=== PATIENT | male | born 2000 | race Caucasian/White ===

== ENCOUNTER 2022-09-07 14:48 | Emergency (ER) | payer BC, SELFPAY ==
[2022-09-07 14:49] VITALS: BP 146/103; PULSE 120; RESP 18; TEMP 36.6; O2SAT 99; BMI 17.0
--- NOTE | 2022-09-07 15:23 | ED.VIS.GI ---
HPI HPI - GI History of Present Illness Chief Complaint: Abd Pain Narrative Narrative: 22-year-old male presenting with nausea since Tuesday. This is now 3 days of symptoms. 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 He states that he did not drink much water. Patient states that when he came home he mowed the entire lawn. He thinks he may be dehydrated. He states he is able to get some fluids into him but if he tries to eat anything he immediately has to spit it out he cannot swallow. He denies any vomiting. Patient states that when he initially had the symptoms he was very shaky and sweating. He states he does have a history of anxiety but is unsure if he was having anxiety at that moment. He states that his family member fell to his head and states that he was hot. He did not check his temperature. He has not had a return of the symptoms. Patient states that he is still making urine and denies any dysuria or hematuria. He is a little bit constipated and took a stool softener. Patient also admits to every day marijuana use. He states he is using since he was 15. He states that since he had the symptoms he feels like taking a hot shower with the water directed between his shoulder blades makes him feel better. He states he has been laying on the couch frequently. Patient does report some vague epigastric pain currently but states it was worse on Tuesday. He reports that he ate pizza Tuesday morning and had some potato soup Tuesday evening. Patient has not had any abdominal surgeries in the past. PFSH PFSH Medical History no medical history Home Medications famotidine 20 mg tablet (Pepcid AC) 20 mg PO BID PRN dyspepsia #20 tabs 09/07/22 [Rx Last Taken Unknown] ondansetron 4 mg disintegrating tablet 4 mg PO Q8H PRN PRN Nausea #14 tabs 09/07/22 [Rx Last Taken Unknown] Allergy/AdvReac Type Severity Reaction Status Date / Time No Known Allergies Allergy Verified 09/07/22 14:50 Family History Other Cancer Surgical History no surgical history Social History Smoking Status: Never smoker alcohol intake: never substance use type: does not use ROS ROS ED Constitutional Constitutional ED: Reports subjective and sweats ENT ENT ED: Denies rhinorrhea or sore throat Cardiovascular Cardiovascular: Reports racing heartbeat; Denies chest pain Respiratory/Chest Respiratory/Chest: Denies cough or dyspnea Gastrointestinal Gastrointestinal: Reports abdominal pain, constipation and nausea Genitourinary Genitourinary ED: Denies dysuria or hematuria Musculoskeletal Musculoskeletal: Denies arthralgias or back pain Integumentary Denies abscess or Abrasions Neurologic Neurologic: Denies headache(s) or paresthesias Psychiatric Psychiatric: Reports anxiety; Denies depression EXAM Physical Exam Const Vital Signs: 09/07/22 14:49 Temperature 97.9 F Temperature Source Temporal Pulse Rate 120 H Respiratory Rate 18 Blood Pressure 146/103 H Blood Pressure Mean 117 Pulse Ox 99 Oxygen Delivery Method Room Air MDM MDM MDM Narrative Medical decision making narrative: Patient presenting with mild epigastric pain which is improving. He had nausea vomiting for couple of days. Differential includes gastritis, GERD, food poisoning, cannabinoid hyperemesis syndrome. IV was established. Patient given Pepcid and Zofran IV. He is given 2 L of normal saline. CBC was obtained to assess white blood cell count, hemoglobin, platelets, differential. CMP was obtained to assess renal function, liver function, glucose, anion gap. Lipase was obtained to assess for pancreatitis. All of his lab work appeared to be unremarkable. Reevaluation at 5:15 PM and the patient is feeling much better. I counseled him on foods to avoid at home. I discussed with him that this may be cannabinoid hyperemesis syndrome I recommend he stay away from marijuana. He is given a scription for Zofran and Pepcid. Return precautions discussed. I do not believe he needs any imaging today. Impression: 1. Epigastric pain 2. Nausea/vomiting Lab Data Labs: Laboratory Results - last 24 hr 09/07/22 09/07/22 15:25 15:25 WBC 7.7 RBC 5.02 Hgb 15.5 Hct 44.6 MCV 88.8 MCH 30.9 MCHC 34.8 RDW Std Deviation 37.6 RDW Coeff of Holly 11.7 Plt Count 203 MPV 11.5 Immature Gran % (Auto) 0.300 Neut % (Auto) 71.1 H Lymph % (Auto) 20.1 Cloud % (Auto) 8.0 Eos % (Auto) 0.1 Baso % (Auto) 0.4 Absolute Neuts (auto) 5.5 Absolute Lymphs (auto) 1.55 Nucleated RBC % 0 Sodium 142 Potassium 3.5 Chloride 108 H Carbon Dioxide 26.0 Anion Gap 8 BUN 13 Creatinine 1.08 Estim Creat Clear Calc 97.18 Est GFR (MDRD) Af Amer 110 Est GFR (MDRD) Non-Af 91 BUN/Creatinine Ratio 12.0 Glucose 104 Calcium 9.2 Total Bilirubin 0.90 AST 24 ALT 38 Alkaline Phosphatase 69 Total Protein 7.4 Albumin 4.1 Globulin 3.3 Albumin/Globulin Ratio 1.2 Lipase 23 Discharge Plan Triage Chief Complaint: Abd Pain ED Provider: Basilio Ball Dx/Rx/DC Orders Instructions: ED Vomiting (Adult), ED Abdominal Pain Unkn Cause Male... Prescriptions: New ondansetron 4 mg tablet,disintegrating 4 mg PO Q8H PRN PRN (Reason: Nausea) Qty: 14 0RF famotidine [Pepcid AC] 20 mg tablet 20 mg PO BID PRN (Reason: dyspepsia) Qty: 20 0RF Primary Care Provider: Care Physician,No Primary Referrals: [facility] [Outside] - 3-5 Days Care Physician,No Primary [Primary Care Provider] - Disposition Disposition: Home, Self Care
[2022-09-07] MEDS: Ondansetron 4 MG/2 ML Vial IV (15:26)
[2022-09-07] MEDS: 0.9% Normal Saline 1,000 ML 999 ML IV ×2 (15:26→16:24)
[2022-09-07 15:32] LABS: Absolute Lymphocyte Count 1.55 X10^3/uL (0.83-4.51); Absolute Neutrophil Count 5.5 X10^3/uL (2.0-7.7); Basophil# 0.03 X10^3/uL; Basophil% 0.4 % (0-1); Eosinophil# 0.01 X10^3/uL; Eosinophils% 0.1 % (0-5); Hematocrit 44.6 % (40-54); Hemoglobin 15.5 g/dL (13.0-16.5); Lymphocyte # 1.55 X10^3/ul (0.83-4.51); Lymphocyte % 20.1 % (19-41); Mean Corp Hgb Conc 34.8 g/dL (32-36); Mean Corpuscular Hgb 30.9 pg (27.0-32.0); Mean Corpuscular Volume 88.8 fL (80-94); Mean Platelet Vol. 11.5 fl (6.2-12.0); Monocyte# 0.62 X10^3/uL; NRBC Flagged by Analyzer 0 % (0-5); Neutrophil # 5.48 X10^3/uL (2.7-7.7); Neutrophil % 71.1 % (47-70); Platelet Count 203 K/mm3 (150-450); RBC Distribution Width CV 11.7 % (11.6-14.6); RBC Distribution Width SD 37.6 fl (35.1-43.9); Red Blood Count 5.02 M/mm3 (4.6-6.2); White Blood Count 7.7 K/mm3 (4.4-11.0)
[2022-09-07] MEDS: Famotidine 200 MG/20 ML MDV 20 MG in 0.9% Normal Saline (Pres. free 8 ML 300 MG IV (15:34)
[2022-09-07 15:54] LABS: ALB/GLOB Ratio 1.2 RATIO (0.9-2.4); AST(SGOT) 24 U/L (15-37); Alanine Aminotransfer ALT/SGPT 38 U/L (16-61); Albumin, Serum 4.1 g/dL (3.2-5.0); Alkaline Phosphatase 69 U/L (45-117); Anion Gap 8 (5-15); BUN 13 mg/dL (7-18); Calcium,Total 9.2 mg/dL (8.5-10.1); Chloride 108 mmol/L (98-107); Creatinine, Serum 1.08 mg/dL (0.70-1.30); EST Glomerular Filtration Rate 91 mL/min (>60); Est Glom Filt Rate - Afr Amer 110 mL/min (>60); Estimated Creatinine Clearance 97.18 ml/min; Globulin 3.3 g/dL (2.2-4.2); Glucose 104 mg/dL (74-106); Lipase 23 U/L (13-75); Potassium 3.5 mmol/L (3.5-5.1); Protein, Total 7.4 g/dL (6.4-8.2); Sodium Level 142 mmol/L (136-145)
== END 2022-09-07 17:23 | disposition home or self-care (01) ==
PROVIDERS: Emergency Provider Student in an Organized Health Care Education/Training Program; Visit Provider Student in an Organized Health Care Education/Training Program
DX: R10.13 Epigastric pain (principal); R11.2 Nausea with vomiting, unspecified; F41.9 Anxiety disorder, unspecified
CPT/HCPCS: 80053; 83690; 85025; 96361; 96374; 96375; 99282; J7030; A4216; J2405; J3490